=== PATIENT | female | born 1960 | race Caucasian/White ===

== ENCOUNTER → 2017-05-04 | Outpatient (CLI) | payer BC ==
[~2017-05-04] MED LIST: OMEP40CA PO
--- NOTE | 2017-05-05 13:40 | MAMMOGRAPHY REPORT ---
BILATERAL DIGITAL SCREENING MAMMOGRAM TOMOSYNTHESIS WITH CAD: 05/04/2017 CLINICAL HISTORY: Routine screening. Patient has no complaints. TECHNIQUE: Breast tomosynthesis in addition to standard 2D mammography was performed. Current study was also evaluated with a Computer Aided Detection (CAD) system. COMPARISON: Comparison is made to exams dated: 06/03/2015 mammogram, 06/01/2014 mammogram, 03/22/2013 mammogram, and 03/21/2012 mammogram - [facility]. BREAST COMPOSITION: There are scattered areas of fibroglandular density in both breasts. FINDINGS: The parenchymal pattern is unchanged. No developing mass, architectural distortion or clus ter of suspicious microcalcifications is seen in either breast. IMPRESSION: ACR BI-RADS CATEGORY 2: BENIGN There is no mammographic evidence of malignancy. A 1 year screening mammogram is recommended. The pa tient will receive written notification of the results. Approximately 10% of breast cancers are not detected with mammography. A negative mammographic report should not delay biopsy if a clinically suggestive mass is present. Mckayla Crawford M.D. ay/:05/04/2017 15:46:49 Scheduling Coordinator: Daiana Ashley RT(R)(M), [facility] letter sent: Normal /2 BI-RADS Code: ACR BI-RADS Category 2: Benign
== END | disposition home or self-care (01) ==
LOC: C.MAMM 14:03
PROVIDERS: ATTEND Internal Medicine
DX: Z12.31 Encounter for screening mammogram for malignant neoplasm of breast (principal)

== ENCOUNTER → 2017-08-27 | Outpatient (CLI) | payer BC ==
--- NOTE | 2017-08-27 10:46 | DIAGNOSTIC IMAGING REPORT ---
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 FINDINGS: There is a minor spinal curvature. There are mild multilevel degenerative changes. No fractures are visualized. No destructive lesions are evident. No soft tissue masses are visualized on conventional radiographic imaging. IMPRESSION: 1. No acute fractures 2. Multilevel degenerative change most severe at the T11-12 level. Electronically signed by: Addison Merchant M.D. 08/27/2017 10:45 AM Dictated Date/Time: 08/27/2017 10:44 AM
--- NOTE | 2017-08-27 10:50 | DIAGNOSTIC IMAGING REPORT ---
L-SPINE MIN 4 VIEWS ROUTINE CLINICAL HISTORY: D17.1 Lipoma of [id number] COMPARISON STUDY: No previous studies for comparison. FINDINGS: No fractures or subluxations are visualized. The bones are mildly osteopenic. There are degenerative changes at the T11-12 level. There are surgical clips within the right upper quadrant consistent with a prior cholecystectomy. There are nonspecific pelvic basin calcifications. There is no pathologic bowel dilatation. No soft tissue masses are visualized on conventional radiographic imaging. IMPRESSION: 1. No acute fractures or subluxations 2. Degenerative changes at the T11-12 level. Electronically signed by: Addison Merchant M.D. 08/27/2017 10:48 AM Dictated Date/Time: 08/27/2017 10:48 AM
== END | disposition home or self-care (01) ==
LOC: C.RAD1850 10:26
PROVIDERS: ATTEND Physician Assistant Medical
DX: D17.1 Benign lipomatous neoplasm of skin and subcutaneous tissue of trunk (principal)

== ENCOUNTER → 2017-09-09 | Outpatient (CLI) | payer BC ==
--- NOTE | 2017-09-09 10:59 | DIAGNOSTIC IMAGING REPORT ---
THORACIC SPINE WITHOUT HISTORY: 57 years-old Female M54.6 acute mid back pain with progressively worsened radicular symptoms COMPARISON: Thoracic spine radiographs 08/27/2017 TECHNIQUE: Multiplanar multisequence MRI of the thoracic spine was obtained without contrast FINDINGS: Agency Development Manager localizer images demonstrate no gross abnormality of the imaged thorax. Imaged posterior fossa structures also appear unremarkable. 2.1 cm T2 hyperintense lesion of the interpolar right kidney suggests renal cyst. Signal within the thoracic spinal cord is unremarkable. Conus medullaris terminates at L1. Modic type II endplate degenerative changes at T7-T8 and T11-T12. 8 mm T1 and T2 hyperintense lesion involving the superior aspect of the T7 vertebral body suggests hemangioma. Mild to moderate multilevel intervertebral disc space narrowing, most pronounced at T11-T12 with a small circumferential disc bulge flattening the ventral thecal sac. Increased kyphotic curvature centered at this level. No significant central canal narrowing. Mild multilevel spondylitic spurring. No high-grade foraminal narrowing identified. Intervertebral disc space narrowing with posterior disc bulging is seen at C5-C6 and C6-C7. There are only 8 axial T2 thin images submitted at time of dictation. No suspicious lesions of the thoracic spine identified. Multilevel Schmorl's nodes. IMPRESSION: 1. Mild to moderate multilevel intervertebral disc space narrowing with spondylitic spurring. Modic type II endplate degenerative changes seen at the T7-T8 and T11-T12 levels. 2. Small circumferential disc bulge at T11-T12 flattens the ventral thecal sac without significant central canal or foraminal narrowing. No high-grade foraminal stenosis identified. 3. 8 mm T7 vertebral body hemangioma. The above report was generated using voice recognition software. It may contain grammatical, syntax or spelling errors. Electronically signed by: Torres Amador M.D. 09/09/2017 10:58 AM Dictated Date/Time: 09/09/2017 10:45 AM
== END | disposition home or self-care (01) ==
LOC: C.MRI 09:46
PROVIDERS: ATTEND Physician Assistant Medical
DX: M99.72 Connective tissue and disc stenosis of intervertebral foramina of thoracic region (principal); M51.24 Other intervertebral disc displacement, thoracic region; D18.09 Hemangioma of other sites